=== PATIENT | male | born 1975 | race American Indian/Alaskan Native ===

== ENCOUNTER 2020-01-03 10:08 | Outpatient (CLI) | payer OTHER ==
--- NOTE | 2020-01-03 12:02 | XRay Report ---
Lumbar spine 4 views INDICATION: Low back pain. IMPRESSION: No fracture or subluxation is identified. Mild L5-S1 facet arthropathy. No significant ne ural foraminal stenosis. Signer Name: Dimitry Schneider MD Signed: 01/03/2020 11:58 AM Workstation Name: [id number]
== END 2020-01-03 10:09 | disposition home or self-care (01) ==
LOC: XRAY 10:08
PROVIDERS: ATTEND Internal Medicine
DX: M47.817 Spondylosis without myelopathy or radiculopathy, lumbosacral region (principal); M48.07 Spinal stenosis, lumbosacral region; G47.33 Obstructive sleep apnea (adult) (pediatric); E66.9 Obesity, unspecified; F32.9 Major depressive disorder, single episode, unspecified; F41.9 Anxiety disorder, unspecified
CPT/HCPCS: 72100